=== PATIENT | female | born 1955 | race African-American/Black ===

== ENCOUNTER 2017-05-21 11:44 | Emergency (ER) | payer OTHER ==
[~2017-05-21] VITALS: Ht 165.1 cm; Wt 84.8 kg
[~2017-05-21 11:44] MED LIST: NORCO 325 MG-51 TAB PO
[2017-05-21 12:15] VITALS: BP 149/80
[2017-05-21 12:40] LABS: ABSOLUTE BASOPHIL COUNT 0 /CUMM (0.0-0.2); ABSOLUTE EOSINOPHIL COUNT 0.1 /CUMM (0.0-0.7); ABSOLUTE GRANULOCYTE CT 2.5 /CUMM (1.4-6.5); ABSOLUTE LYMPH COUNT 2.3 /CUMM (1.2-3.4); ABSOLUTE MONOCYTE COUNT 0.3 /CUMM (0.10-0.60); BASOPHIL % 0.7 % (0.0-2.0); EOSINOPHIL % 2.6 % (0-5); GRANULOCYTE % 47.7 % (42.2-75.2); HEMATOCRIT 39.4 % (37-47); MEAN CORPUSCULAR HGB 27.8 PG (27.0-31.0); MEAN CORPUSCULAR HGB CONC 32.9 G/DL (33.0-37.0); MEAN CORPUSCULAR VOLUME 84.3 FL (81.0-99.0); MEAN PLATELET VOLUME 9.1 FL (7.4-10.4); PLATELET COUNT 279 /CUMM (130-400); RBC DISTRIBUTION WIDTH 13.9 % (11.5-14.5); RED BLOOD CELL CT 4.67 /CUMM (4.20-5.40); WHITE BLOOD CELL COUNT 5.3 /CUMM (4.8-10.8)
[2017-05-21] MEDS ORDERED: NORVASC10 M1 PO (15:35)
[2017-05-21] MEDS ORDERED: ATORVASTATIN CA20 M1 PO (15:36)
[2017-05-21] MEDS ORDERED: METFORMIN HCL500 M3 PO (15:36)
== END 2017-05-21 13:06 | disposition admitted as inpatient to this hospital (09) ==
LOC: ERH 11:44
PROVIDERS: Emergency Medicine
DX: R07.89 Other chest pain (principal); R94.31 Abnormal electrocardiogram [ECG] [EKG]
CPT/HCPCS: 93005; 93010; 99281

== ENCOUNTER 2017-05-21 13:53 | Emergency (ER) | payer OTHER ==
[~2017-05-21] VITALS: Ht 165.1 cm; Wt 84.8 kg
--- NOTE | 2017-05-21 15:34 | ED CARDIAC/CP/PALPITATIONS ---
History of Present Illness General Chief Complaint: General Adult Stated Complaint: SIB DR BUSH CHANGE IN EKG Source: patient, family Exam Limitations: no limitations Vital Signs & Intake/Output Vital Signs & Intake/Output Vital Signs Date Time Temp Pulse Resp B/P B/P Pulse O2 O2 Flow FiO2 Mean Ox Delivery Rate 05/21 1739 98.5 88 18 138/74 99 Room Air 05/21 1737 99 Room Air 05/21 1636 96.8 41 18 140/78 100 Room Air 05/21 1359 96.1 49 18 143/86 96 Room Air Allergies Coded Allergies: codeine (UNKNOWN 05/21/17) Reconcile Medications Amlodipine Besylate (Norvasc) 10 MG TABLET 1 TAB PO DAILY HEART (Reported) Atorvastatin Calcium 20 MG TABLET 1 TAB PO DAILY CHOLESTEROL (Reported) Metformin HCl 500 MG TABLET 1 TAB PO DAILY DIABETES (Reported) Triage Note: PT TO ED FOR SECOND VISIT TODAY, LEFT PREVIOUSLY "BECAUSE I HAD TO GO DO STUFF" RETURNS TO BE EVALUATED FOR THREE DAYS OF CHEST TIGHTNESS. Triage Nurses Notes Reviewed? yes Onset: Gradual Duration: day(s): Timing: recent history Quality/Severity: sharp Location: BILATERAL CHEST Radiation: no radiation Activities at Onset: activity Prior Chest Pain/Card Workup: cardiac cath HPI: 62yo female with hx of HTN, DM sent in by primary care doctor for EKG changes. Patient states she had physical exam yesterday at which time patient's heart rate was slow, patient has history of bradycardia. Patient states that there was EKG done with possible changes. Patient was coming here to [facility] for outpatient x-rays, while she was here her primary care doctor called her and instructed her to report to the emergency department. Patient reports bilateral chest tightness for the past 3 days intermittently. She states that chest tightness is not present when she wakes up however she goes about her day-to-day tightness increases, at times worse with exertion. There are no associated symptoms. No radiation of chest pain. Current chest pain 0/10. At times chest pain can be 8/10. Patient has seen a hand stone polisher in [place] at which time she had a catheterization done without showing significant arterial occlusion. She has had no hand stone polisher since moving to [place]. The patient denies dyspnea, fevers, chills, abdominal pain, nausea, vomiting, presyncope, syncope. Past History Travel History Traveled to [place] past 21 day No Medical History Any Pertinent Medical History? see below for history Neurological: NONE EENT: NONE Cardiovascular: hypertension, hyperlipidemia Respiratory: NONE Gastrointestinal: NONE Hepatic: NONE Renal: NONE Musculoskeletal: NONE Psychiatric: NONE Endocrine: diabetes Blood Disorders: NONE Cancer(s): NONE Surgical History Surgical History: non-contributory Psychosocial History What is your primary language Uzbek Tobacco Use: Current Daily Use Daily Tobacco Use Amount/Type: => 5 Cigarettes daily ETOH Use: denies use Illicit Drug Use: denies illicit drug use Family History Hx Contributory? No Review of Systems Review of Systems Constitutional: Reports: no symptoms. EENTM: Reports: no symptoms. Respiratory: Reports: no symptoms. Cardiovascular: Reports: see HPI. GI: Reports: no symptoms. Genitourinary: Reports: no symptoms. Musculoskeletal: Reports: no symptoms. Skin: Reports: no symptoms. Neurological/Psychological: Reports: no symptoms. Hematologic/Endocrine: Reports: no symptoms. Immunologic/Allergic: Reports: no symptoms. All Other Systems: Reviewed and Negative Physical Exam Physical Exam General Appearance: well developed/nourished, no apparent distress, alert, awake Head: atraumatic, normal appearance Eyes: Bilateral: normal appearance. Ears, Nose, Throat: hearing grossly normal Neck: normal inspection, supple, full range of motion Respiratory: normal breath sounds, no respiratory distress, lungs clear, anterior chest wall tenderness Cardiovascular: regular rate/rhythm Peripheral Pulses: 2+ radial (R), 2+ radial (L) Gastrointestinal: normal bowel sounds, soft, non-tender, no organomegaly Back: normal inspection, normal range of motion Extremities: normal inspection, normal range of motion Neurologic/Psych: awake, alert, oriented x 3 Skin: intact, normal color, warm/dry Core Measures ACS in differential dx? Yes CVA/TIA Diagnosis No Sepsis Present: No Sepsis Focused Exam Completed? No Progress Differential Diagnosis: AMI, atrial fibrillation, CHF/pulm edema, costochondritis, musculoskeletal pain, myocarditis, pericarditis, pneumonia, pneumothorax, pulmonary embolism, unstable angina, arythmia Plan of Care: Orders Procedure Date/time Status Heart Healthy Diet 05/21 D Active TROPONIN LEVEL 05/21 1530 Complete COMPREHENSIVE METABOLIC PANEL 05/21 1530 Complete CBC WITHOUT DIFFERENTIAL 05/21 1530 Complete EKG 05/21 1530 Active Laboratory Tests 05/21/17 1612: Anion Gap 12, Estimated GFR > 60, BUN/Creatinine Ratio 17.5, Glucose 108 H, Calcium 9.7, Total Bilirubin 0.4, AST 23, ALT 24, Alkaline Phosphatase 87, Troponin I < 0.01, Total Protein 7.4, Albumin 4.4, Globulin 3.0, Albumin/ Globulin Ratio 1.5, CBC w Diff NO MAN DIFF REQ, RBC 4.81, MCV 83.9, MCH 27.8, MCHC 33.1, RDW 13.9, MPV 9.0, Gran % 46.8, Lymphocytes % 43.5, Monocytes % 5.5, Eosinophils % 3.3, Basophils % 0.9, Absolute Granulocytes 2.8, Absolute Lymphocytes 2.6, Absolute Monocytes 0.3, Absolute Eosinophils 0.2, Absolute Basophils 0.1 The patient was here in the emergency department earlier today however she left prior to being seen by a provider, she had EKG and blood work performed during triage. Patient states she had to Her grandson and had to leave. Troponin at that time was negative, her EKG at that time showed sinus bradycardia with rate of 42, unchanged study compared to her previous EKG from 2014. Upon patient's return to the emergency department repeat EKG and blood work were obtained. Repeat EKG obtained over 3 hours from previous EKG earlier today is unchanged. Second troponin is negative. Patient's chest x-ray without acute abnormality. The patient has intermittent chest pain, currently no chest pain. Spoke with Dr. Mullins regarding this patient's and her diagnostic workup today. He reports with no active chest pain and stable EKG the patient can follow-up with him in the office. Patient feels ready to go home at this time, she is in no acute distress, stable vital signs, stable ice bradycardia. Patient ambulated without difficulty, no presyncope. Patient to follow-up with cardiology, she was given strict return precautions. The patient agrees with the plan of care. The patient was discussed with Dr. Pollack who agrees with this plan. Diagnostic Imaging: Viewed by Me: Radiology Read. Discussed w/RAD: Radiology Read. CXR Impression: PATIENT: MATEUSZ FRANKEL PRESENT AGE: 89 PATIENT ACCOUNT NO: [id number] : [birth year] LOCATION: [facility] ORDERING PHYSICIAN: Marisa CUELLAR SERVICE DATE: 05/21/17 EXAM TYPE: CAT - CT HEAD WO IV CONTRAST EXAMINATION: CT HEAD without contrast CLINICAL INFORMATION: Near fall, lower extremity weakness COMPARISON: Prior CT October 2016 TECHNIQUE: Computed axial tomographic sections acquired at 2.5 mm thin sections. DLP: 601 mGy-cm FINDINGS: CEREBRAL HEMISPHERES: There is no evidence of intra-axial or extra-axial mass, hemorrhage or acute infarct. BRAIN PARENCHYMA: Deep white matter and paraventricular hypoattenuation, nonspecific; however, in this patient's age group most likely changes secondary to chronic ischemia/microvascular angiopathy. SUBDURAL SPACE: No bleed. BASAL GANGLIA AND PINEAL GLAND: Unremarkable VENTRICLES: Symmetric and normal in size. CEREBELLUM AND BRAINSTEM: No space-occupying mass, hemorrhage or acute infarct. CEREBELLOPONTINE ANGLES: No lesion found. ORBITS: No intraorbital mass. VESSELS: There are vascular calcifications. SKULL BASE: Unremarkable INCLUDED SINUSES AT SKULL BASE: Clear SKULL AND SKIN: No fracture or bone lesion found. IMPRESSION: Deep white matter and periventricular hypoattenuation, nonspecific; however, in this patient's age group most likely sequela of chronic microvascular angiopathy ischemia. DICTATED BY: Yousif Saavedra MD DATE/TIME DICTATED:05/21/171139 CLIENT RETENTION SPECIALIST:LUIS DATE/TIME TRANSCRIBED:05/21/171139 CONFIDENTIAL, DO NOT COPY WITHOUT APPROPRIATE AUTHORIZATION. <Electronically signed in Other Vendor System> SIGNED BY: Keri ENAMORADO,Ernieeer 05/21/17 1147 Initial ED EKG: SINUS BRADYCARDIA @42BPM, NONSPECIFIC ST CHANGES Prior EKG: unchanged (12/22/14) Repeat EKG: unchanged Departure Departure Disposition: HOME OR SELF CARE Condition: Stable Clinical Impression Primary Impression: Sinus bradycardia Secondary Impressions: Chest pain Qualifiers: Chest pain type: unspecified Qualified Code: R07.9 - Chest pain, unspecified Referrals: Lane ENAMORADO,Laen (PCP/Family) Varun Mullins MD Additional Instructions: Follow-up with hand stone polisher as discussed. Return to the emergency Department with any worsening symptoms or concerns. Monitor for chest pain, shortness of breath, feeling faint, passing out. Please note that there might be incidental findings in your evaluation that are unrelated to the current emergency department visit. Please notify your primary care doctor about this emergency department visit in order to obtain and review all of the testing performed so that these incidental findings can be monitored as needed. If you had an x-ray performed, please understand that some fractures may not be seen on the initial set of x-rays. If your symptoms persist you might need a repeat set of x-rays to check for such a fracture. If you had a laceration evaluated, please understand that foreign bodies such as glass or wood may not be visible to the naked eye or on plain x-rays. If the wound becomes red, swollen, increasingly more painful or if there is any drainage from the wound, please have it reevaluated by a physician for the possibility of a retained foreign body. If you're unable to follow up as outlined in the discharge instructions please return to the emergency department. Thank you for choosing the [facility] Emergency Department for your care. It was a pleasure to serve you today. Departure Forms: Customer Survey General Discharge Information Critical Care Note Critical Care Note Critical Care Time: non-applicable
[2017-05-21] MEDS ORDERED: NORVASC10 M1 PO (15:35)
[2017-05-21] MEDS ORDERED: METFORMIN HCL500 M3 PO (15:36)
[2017-05-21] MEDS ORDERED: ATORVASTATIN CA20 M1 PO (15:36)
--- NOTE | 2017-05-21 15:52 | RADIOLOGY REPORT ---
EXAMINATION: CHEST 2 VIEWS CLINICAL INFORMATION: Chest pain. Tightness. COMPARISON: None. TECHNIQUE: PA and lateral views of the chest were obtained. FINDINGS: The cardiac silhouette is not enlarged. The mediastinal and hilar contours are unremarkable. There are neither pleural effusions nor pneumothoraces. There are no consolidations. The osseous structures are unremarkable. IMPRESSION: No evidence for acute disease.
[2017-05-21 16:29] LABS: ABSOLUTE BASOPHIL COUNT 0.1 /CUMM (0.0-0.2); ABSOLUTE EOSINOPHIL COUNT 0.2 /CUMM (0.0-0.7); ABSOLUTE GRANULOCYTE CT 2.8 /CUMM (1.4-6.5); ABSOLUTE LYMPH COUNT 2.6 /CUMM (1.2-3.4); ABSOLUTE MONOCYTE COUNT 0.3 /CUMM (0.10-0.60); BASOPHIL % 0.9 % (0.0-2.0); EOSINOPHIL % 3.3 % (0-5); GRANULOCYTE % 46.8 % (42.2-75.2); HEMATOCRIT 40.4 % (37-47); MEAN CORPUSCULAR HGB 27.8 PG (27.0-31.0); MEAN CORPUSCULAR HGB CONC 33.1 G/DL (33.0-37.0); MEAN CORPUSCULAR VOLUME 83.9 FL (81.0-99.0); PLATELET COUNT 280 /CUMM (130-400); RBC DISTRIBUTION WIDTH 13.9 % (11.5-14.5); RED BLOOD CELL CT 4.81 /CUMM (4.20-5.40); WHITE BLOOD CELL COUNT 5.9 /CUMM (4.8-10.8)
[2017-05-21 17:39] VITALS: BP 138/74
== END 2017-05-21 17:39 ==
LOC: ERH 13:53
PROVIDERS: Physician Assistant
DX: R00.1 Bradycardia, unspecified (principal); R07.89 Other chest pain
CPT/HCPCS: 71046; 93005; 93010